=== PATIENT | male | born 1970 | race Caucasian/White ===

== ENCOUNTER 2016-08-18 22:31 | Emergency (ER) | payer OTHER ==
--- NOTE | 2016-08-18 23:38 | Emergency Department Record ---
History of Present Illness - General Chief Complaint: Dizziness Stated Complaint: DIZZY,NAUSEA,HEADACHE Time Seen by Provider: 08/18/16 23:24 Source: Patient Mode of Arrival: Wheelchair Limitations: No limitations - History of Present Illness Initial Comments: pt has been having increasing ataxic spells and near syncope spells. they are usually accompanied by nausea and vomiting. he has gone to the [facility] and has had an echo of his heart. tonight symptoms became severe and he fell repeatedly and had near syncope. MD Complaint: Dizziness, Lightheadedness, Near syncope, Difficulty walking Onset/Timin -: Hour(s) Timing: Awoke with symptoms Description: Difficulty walking, Lightheadedness, Nausea, Off-balance History of Same: Yes Improves With: Rest Worsens With: Movement, Position Associated Symptoms: Ataxia - Temple Coma Scale Eye Response: (4) Open spontaneously Motor Response: (6) Obeys commands Verbal Response: (5) Oriented Yonathan Total: 15 - Related Data Home Medications Medication Instructions Recorded Confirmed Last Taken Albuterol Sulfate 0.083% [Neb] 3 ml NEB .EVERY 4-6 HOURS PRN 07/04/15 08/18/16 07/04/15 14:00 Albuterol Sulfate [Ventolin Hfa] 2 puff INH ASDIR 07/04/15 08/18/16 07/04/15 Budesonide/Formoterol Fumarate 1 puff INH DAILY 07/04/15 08/18/16 07/04/15 [Symbicort 160-4.5 Mcg Inhaler] Tiotropium Willard [Spiriva] 1 cap IH DAILY 07/04/15 08/18/16 07/04/15 Ranitidine HCl [Zantac] 150 mg PO DAILY 08/18/16 08/18/16 Unknown Previous Rx's Medication Instructions Recorded Epinephrine [Epipen] 0.3 mg IM ASDIR PRN #3 syr 07/04/15 Amoxicillin/Potassium Clav 1 tab PO BID #30 tab 08/19/16 [Augmentin 875-125 Tablet] Promethazine HCl [Phenergan] 25 mg PO TID #10 tablet 08/19/16 Allergies Allergy/AdvReac Type Severity Reaction Status Date / Time aspirin Allergy ANAPHYLAXIS Verified 07/04/15 20:57 Iodinated Contrast Media - Allergy SHORTNESS Verified 08/18/16 22:44 Oral and OF BREATH Travel Screening - Travel/Exposure Within Last 30 Days Have you traveled within the last 30 days?: No - Travel Symptoms Symptom Screening: None Review of Systems Reviewed: No additional complaints except as noted below Constitutional: Reports: As per HPI. Denies: Chills, Fever, Malaise, Night sweats, Weakness, Weight change Eyes: Reports: As per HPI. Denies: Eye discharge, Eye pain, Photophobia, Vision change ENT: Reports: As per HPI. Denies: Congestion, Dental pain, Ear pain, Epistaxis , Hearing loss, Throat pain Respiratory: Reports: As per HPI. Denies: Cough, Dyspnea, Hemoptysis, Stridor, Wheezes Cardiovascular: Reports: As per HPI. Denies: Arrhythmia, Chest pain, Dyspnea on exertion, Edema, Murmurs, Orthopnea, Palpitations, Paroxysmal nocturnal dyspnea, Rheumatic Fever, Syncope Endocrine: Reports: As per HPI. Denies: Fatigue, Heat or cold intolerance, Polydipsia, Polyuria Gastrointestinal: Reports: As per HPI. Denies: Abdominal pain, Constipation, Diarrhea, Hematemesis, Hematochezia, Melena, Nausea, Vomiting Genitourinary: Reports: As per HPI. Denies: Dysuria, Frequency, Hematuria, Incontinence, Retention, Testicular pain, Testicular mass, Urgency Musculoskeletal: Reports: As per HPI. Denies: Arthralgia, Back pain, Gout, Joint swelling, Myalgia, Neck pain Skin: Reports: As per HPI. Denies: Bruising, Change in color, Change in hair/ nails, Lesions, Pruritus, Rash Neurological: Reports: As per HPI. Denies: Abnormal gait, Confusion, Headache, Numbness, Paresthesias, Seizure, Tingling, Tremors, Vertigo, Weakness Psychiatric: Reports: As per HPI. Denies: Anxiety, Auditory hallucinations, Depression, Homicidal thoughts, Suicidal thoughts, Visual hallucinations Hematological/Lymphatic: Reports: As per HPI. Denies: Anemia, Blood Clots, Easy bleeding, Easy bruising, Swollen glands Past Medical History - SOCIAL HISTORY Smoking Status: Never smoker - RESPIRATORY Hx Respiratory Disorders: Yes Hx Asthma: Yes Hx Sleep Apnea: Yes Hx of CPAP: Yes Comment:: environmental allergies - CARDIOVASCULAR Hx Cardio Disorders: No - NEURO Hx Neuro Disorders: Yes Hx Headaches: Yes Comment:: tinnitis - GI Hx GI Disorders: Yes Hx Reflux: Yes Hx Irritable Bowel: Yes - Hx Genitourinary Disorders: No - ENDOCRINE Hx Endocrine Disorders: No - MUSCULOSKELETAL Hx Musculoskeletal Disorders: Yes Hx Arthritis: Yes Comment:: bone spurs in feet - PSYCH Hx Psych Problems: Yes Hx Depression: Yes Comment:: PTSD - HEMATOLOGY/ONCOLOGY Hx Hematology/Oncology Disorders: No Family Medical History Any Significant Family History?: Yes Hx Cancer: Father, Grandparents Hx Seizures: Mother Physical Exam - General General Appearance: Alert, Oriented x3, Cooperative, Mild distress - Head Head exam: Normal inspection - Eye Eye exam: Normal appearance, PERRL, EOMI Pupils: Normal accommodation - ENT ENT exam: Normal exam, Mucous membranes moist, Normal external ear exam, Normal orophraynx Ear exam: Normal external inspection. negative: External canal tenderness Nasal Exam: Normal inspection. negative: Discharge, Sinus tenderness Mouth exam: Normal external inspection, Tongue normal Teeth exam: Normal inspection. negative: Dental caries Throat exam: Normal inspection. negative: Tonsillar erythema, Tonsillar exudate - Neck Neck exam: Normal inspection, Full ROM. negative: Tenderness - Respiratory Respiratory exam: Normal lung sounds bilaterally. negative: Respiratory distress - Cardiovascular Cardiovascular Exam: Normal rhythm, Normal heart sounds, Bradycardia - GI/Abdominal GI/Abdominal exam: Soft, Normal bowel sounds. negative: Tenderness - Rectal Rectal exam: Deferred - exam: Deferred - Extremities Extremities exam: Normal inspection, Full ROM, Normal capillary refill. negative: Tenderness - Back Back exam: Reports: Normal inspection, Full ROM. Denies: Muscle spasm, Rash noted, Tenderness - Neurological Neurological exam: Alert, CN II-XII intact, Oriented X3, Other (missed nose w finger) - Psychiatric Psychiatric exam: Normal affect, Normal mood - Skin Skin exam: Dry, Intact, Normal color, Warm Course Vital Signs 08/18/16 22:45 Temperature 97.5 F L Pulse Rate 56 L Respiratory 16 Rate Blood Pressure 129/90 Pulse Ox 95 - Reevaluation(s) Reevaluation #1: 08/19/16 02:28 pt feels much better, no n/v,no further dizziness. able to ambulate Medical Decision Making - Lab Data Result diagrams: 08/18/16 23:05 08/18/16 23:05 Disposition Disposition: Discharge Clinical Impression: Sinusitis Qualifiers: Sinusitis location: pansinusitis Chronicity: acute Recurrence: non-recurrent Qualified Code(s): J01.40 - Acute pansinusitis, unspecified Disposition: Home, Self-Care Condition: (1) Good Instructions: Acute Bacterial Rhinosinusitis (ED) Additional Instructions: follow up with [facility] and [facility]. return sooner if worse. have MRI of brain Prescriptions: Amoxicillin/Potassium Clav [Augmentin 875-125 Tablet] 1 tab PO BID #30 tab Promethazine HCl [Phenergan] 25 mg PO TID #10 tablet Forms: Patient Portal Access
[2016-08-18 23:56] LABS: BASO % 0.3 % (0-6); EOS % 1.5 % (0-6); GRAN % 56.3 % (47-80); HEMATOCRIT 43.6 % (42.0-52.0); HEMOGLOBIN 15.6 gm/dl (14.0-18.0); LYMPH % 34.1 % (16-45); MEAN CELL VOLUME 87.9 fl (81-97); MEAN CORPUSCULAR HEMOGLOBIN 31.5 pg (27-33); MEAN CORPUSCULAR HGB CONC 35.8 g/dl (32-36); MEAN PLATELET VOLUME 12.4 fl (7.4-10.4); MONO % 7.8 % (0-9); PLATELET COUNT 187 K/uL (130-400); RED BLOOD COUNT 4.96 M/uL (4.40-5.70); RED CELL DISTRIBUTION WIDTH 12.9 % (11.5-14.5); WHITE BLOOD COUNT W/O DIFF 7.8 K/uL (4.2-12.2)
[2016-08-19 00:05] LABS: ANION GAP 12.8 (7-16); BLOOD UREA NITROGEN 14 mg/dL (9-20); CARBON DIOXIDE 25.2 mmol/L (22-30); CREATININE 0.9 mg/dL (0.66-1.25); EST GLOMERULAR FILTRATION RATE > 60 ml/min; GLUCOSE,RANDOM 115 mg/dL (70-110)
[2016-08-19] MEDS ORDERED: 0.9 % SODIUM CHLORIDE 1,000 ML BAG IV ONE (02:02)
[2016-08-19 02:16] LABS: URINE APPEARANCE CLEAR; URINE BILIRUBIN NEGATIVE (NEGATIVE); URINE BLOOD NEGATIVE (NEGATIVE); URINE COLOR YELLOW; URINE GLUCOSE (UA) NEGATIVE (NEGATIVE); URINE KETONE NEGATIVE (NEGATIVE); URINE LEUKOCYTE ESTERASE NEGATIVE (NEGATIVE); URINE NITRITE NEGATIVE (NEGATIVE); URINE PROTEIN NEGATIVE (NEGATIVE); URINE UROBILINOGEN 0.2 E.U./dL (0.20 - 1.00)
[2016-08-19] MEDS ORDERED: AMOXICILLIN/POTASSIUM CLAV 875MG/125MG TABLET PO ONE (02:29)
[2016-08-19] MEDS ORDERED: PROMETHAZINE HCL 25 MG TABLET PO ONE (02:29)
== END 2016-08-19 02:44 | disposition home or self-care (01) ==
LOC: ER 22:31
DX: J01.40 Acute pansinusitis, unspecified (principal); R51 Headache; R11.0 Nausea; R42 Dizziness and giddiness; R27.0 Ataxia, unspecified; R19.7 Diarrhea, unspecified
CPT/HCPCS: 70450; 80048; 81003; 85025; 96360; 99284; J7030; Q0170

== ENCOUNTER 2017-12-17 03:51 | Emergency (ER) | payer OTHER ==
[2017-12-17] MEDS ORDERED: DIPHENHYDRAMINE HCL 25 MG CAPSULE PO ONE (04:04)
[2017-12-17] MEDS ORDERED: PREDNISONE 20 MG TAB PO ONE (04:04)
--- NOTE | 2017-12-17 04:10 | Emergency Department Record ---
History of Present Illness - General Chief complaint: Allergic Reaction Stated complaint: ALLERGIC REACTION Time Seen by Provider: 12/17/17 03:52 Source: Patient Mode of Arrival: Ambulatory Limitations: No limitations - History of Present Illness Initial Comments: 47 yo male presents to ED for evaluation following self-administration of his home epi pen after awakening this morning with shortness or breath and throat swelling. Patient reported shortness of breath and wheezing which has improved upon arrival. Patient reports that his allergic symptoms are greatly improved following epi administration. Patient denies any new foods, detergents, or medications at home. Patient reports similar symptoms previously. MD Complaint: Allergic reaction Onset/Timin -: Minutes(s) Exposure: Unknown Symptoms: Rash, Difficulty breathing, Other Severity: Severe Treatment Prior to Arrival: Bronchodilator, Epinephrine Previous Allergy History: Anaphylaxis - Related Data Home Medications Medication Instructions Recorded Confirmed Last Taken Adalimumab [Humira] 40 mg SQ ASDIR 12/17/17 12/17/17 Unknown Aspirin [Aspirin EC] 325 mg PO DAILY 12/17/17 12/17/17 Unknown Carboxymethylcellulose [Methocel E 1 gm ASDIR 12/17/17 12/17/17 Unknown 4 M] Cetirizine HCl [Zyrtec] 10 mg PO DAILY 12/17/17 12/17/17 Unknown Divalproex Sodium [Depakote] 500 mg PO DAILY 12/17/17 12/17/17 Unknown Folic Acid 1 mg PO DAILY 12/17/17 12/17/17 Unknown Hydroxychloroquine Sulfate 200 mg PO DAILY 12/17/17 12/17/17 Unknown [Plaquenil] Hydroxyzine HCl [Atarax] 25 mg PO Q8H PRN 12/17/17 12/17/17 Unknown Lisinopril [Prinivil] 5 mg PO DAILY 12/17/17 12/17/17 Unknown Methotrexate 1 gm ASDIR 12/17/17 12/17/17 Unknown Metoprolol Succinate [Toprol Xl] 100 mg PO DAILY 12/17/17 12/17/17 Unknown Mirtazapine [Remeron] 30 mg PO QHS 12/17/17 12/17/17 Unknown Trazodone HCl 100 mg PO QHS 12/17/17 12/17/17 Unknown Zileuton [Zyflo] 600 mg PO DAILY 12/17/17 12/17/17 Unknown Previous Rx's Medication Instructions Recorded Epinephrine [Epipen] 0.3 mg IM ASDIR PRN #3 syr 07/04/15 Famotidine [Pepcid] 40 mg PO DAILY #15 tablet 12/17/17 Prednisone [Prednisone 20Mg] 20 mg PO TID #12 tab 12/17/17 Allergies Allergy/AdvReac Type Severity Reaction Status Date / Time aspirin Allergy ANAPHYLAXIS Verified 07/04/15 20:57 Iodinated Contrast- Oral and Allergy SHORTNESS Verified 08/18/16 22:44 IV Dye OF BREATH [Iodinated Contrast Media - Oral and] Travel Screening - Travel/Exposure Within Last 30 Days Have you traveled within the last 30 days?: No - Travel Symptoms Symptom Screening: None Review of Systems Constitutional: Denies: Chills, Fever, Malaise, Night sweats Eyes: Denies: Eye discharge, Eye pain ENT: Denies: Congestion, Ear pain, Epistaxis Respiratory: Reports: Dyspnea. Denies: Cough Cardiovascular: Denies: Chest pain, Dyspnea on exertion Endocrine: Denies: Fatigue, Heat or cold intolerance Gastrointestinal: Denies: Abdominal pain, Nausea, Vomiting Genitourinary: Denies: Incontinence, Retention Musculoskeletal: Denies: Arthralgia, Back pain, Gout, Joint swelling Skin: Denies: Bruising, Change in color Neurological: Denies: Abnormal gait, Confusion, Headache, Seizure Psychiatric: Denies: Anxiety Hematological/Lymphatic: Denies: Anemia, Blood Clots Past Medical History - SOCIAL HISTORY Smoking Status: Never smoker Alcohol Use: None Drug Use: None - RESPIRATORY Hx Respiratory Disorders: Yes Hx Asthma: Yes Hx Sleep Apnea: Yes Hx of CPAP: Yes Comment:: environmental allergies - CARDIOVASCULAR Hx Cardio Disorders: No - NEURO Hx Neuro Disorders: Yes Hx Headaches: Yes Comment:: tinnitis - GI Hx GI Disorders: Yes Hx Reflux: Yes Hx Irritable Bowel: Yes - Hx Genitourinary Disorders: No - ENDOCRINE Hx Endocrine Disorders: No - MUSCULOSKELETAL Hx Musculoskeletal Disorders: Yes Hx Arthritis: Yes Comment:: bone spurs in feet - PSYCH Hx Psych Problems: Yes Hx Depression: Yes Comment:: PTSD - HEMATOLOGY/ONCOLOGY Hx Hematology/Oncology Disorders: No Family Medical History Any Significant Family History?: Yes Hx Cancer: Father, Grandparents Hx Seizures: Mother Physical Exam - General General Appearance: Alert, Oriented x3, Cooperative, Mild distress Limitations: No limitations - Head Head exam: Atraumatic, Normocephalic, Normal inspection Head exam detail: negative: Abrasion, Contusion, Evans's sign, General tenderness, Hematoma, Laceration - Eye Eye exam: Normal appearance. negative: Conjunctival injection, Periorbital swelling, Periorbital tenderness, Scleral icterus - ENT Ear exam: negative: Auricular hematoma, Auricular trauma Nasal Exam: negative: Active bleeding, Discharge, Dried blood, Foreign body Mouth exam: negative: Drooling, Laceration, Muffled voice, Tongue elevation - Neck Neck exam: Normal inspection. negative: Meningismus, Tenderness - Respiratory Respiratory exam: Normal lung sounds bilaterally. negative: Rales, Respiratory distress, Rhonchi, Stridor - Cardiovascular Cardiovascular Exam: Regular rate, Normal rhythm, Normal heart sounds - GI/Abdominal GI/Abdominal exam: Soft. negative: Rebound, Rigid, Tenderness - Rectal Rectal exam: Deferred - exam: Deferred - Extremities Extremities exam: Normal inspection. negative: Calf tenderness, Pedal edema, Tenderness - Back Back exam: Denies: CVA tenderness (R), CVA tenderness (L) - Neurological Neurological exam: Alert, Normal gait, Oriented X3 - Psychiatric Psychiatric exam: Normal affect, Normal mood - Skin Skin exam: Normal color. negative: Abrasion Type of lesion: negative: abrasion Course Vital Signs 12/17/17 03:55 Temperature 98 F Pulse Rate 86 Respiratory 22 Rate Blood Pressure 146/110 Pulse Ox 99 - Reevaluation(s) Reevaluation #1: 12/17/17 05:19 Patient reassessed, reports that his symptoms continue to improve. Patient appears stable for discharge on Prednisone and Pepcid as directed. Disposition Disposition: Discharge Clinical Impression: Allergic reaction Qualifiers: Encounter type: initial encounter Qualified Code(s): T78.40XA - Allergy, unspecified, initial encounter Disposition: Home, Self-Care Condition: (2) Stable Instructions: General Allergic Reaction (ED) Additional Instructions: Return to ED if your symptoms worsen or if you have any concerns. Prednisone, Pepcid as directed. Follow-up with your family doctor in 3-5 days as directed. Prescriptions: Famotidine [Pepcid] 40 mg PO DAILY #15 tablet Prednisone [Prednisone 20Mg] 20 mg PO TID #12 tab Forms: Patient Portal Access Time of Disposition: 04:13 Quality - Quality Measures Quality Measures: N/A - Blood Pressure Screening Does Patient Have Any of the Following: No Blood Pressure Classification: Hypertensive Reading Systolic Measurement: 146 Diastolic Measurement: 110 Screening for High Blood Pressure: < First Hypertensive BP, F/U Documented > [ [id number]] First Hypertensive Follow-up Interventions: Referral to alternative/primary care provider.
[2017-12-17] MEDS ORDERED: FAMOTIDINE 20MG TABLET PO SCH (07:00)
== END 2017-12-17 05:24 | disposition home or self-care (01) ==
LOC: ER 03:51
DX: T78.40XA Allergy, unspecified, initial encounter (principal); R06.02 Shortness of breath; R21 Rash and other nonspecific skin eruption; R06.2 Wheezing
CPT/HCPCS: 99283; J7512

== ENCOUNTER 2017-12-29 04:13 | Emergency (ER) | payer OTHER ==
[2017-12-29] MEDS ORDERED: IPRATROPIUM/ALBUTEROL (0.5MG/3MG) NEB INH ONE (04:15)
[2017-12-29] MEDS ORDERED: METHYLPREDNISOLONE PF 125MG/VIAL IVP ONE (04:15)
[2017-12-29] MEDS ORDERED: DIPHENHYDRAMINE HCL 50 MG/ML VIAL IVP ONE (04:22)
[2017-12-29 04:23] LABS: BASO % 0.3 % (0-6); EOS % 7.7 % (0-6); GRAN % 39.7 % (47-80); HEMATOCRIT 46.9 % (42.0-52.0); HEMOGLOBIN 16.9 gm/dl (14.0-18.0); LYMPH % 44.4 % (16-45); MEAN CELL VOLUME 86.9 fl (81-97); MEAN CORPUSCULAR HEMOGLOBIN 31.3 pg (27-33); MONO % 7.9 % (0-9); PLATELET COUNT 192 K/uL (130-400); RED CELL DISTRIBUTION WIDTH 12.2 % (11.5-14.5); WHITE BLOOD COUNT W/O DIFF 11.5 K/uL (4.2-12.2)
--- NOTE | 2017-12-29 04:23 | Emergency Department Record ---
History of Present Illness - General Chief Complaint: Shortness of breath Stated Complaint: RAYMON Time Seen by Provider: 12/29/17 04:15 Source: Patient, Family Mode of Arrival: Ambulatory Limitations: No limitations - History of Present Illness Initial Comments: 47 yo male presents with shortness of breath and wheezing. He has a history of allergies and allergic reactions. He had a similar episode about 1.5 weeks ago and was seen in the ED. He gave himself an epinephrine shot and started nebulized treatments. He is not currently on antibiotics or steroids. No lip, tongue, facial swelling. He is coughing. It is non productive. He went to bed around midnight. He had a normal evening prior to that. He woke at 3:50AM with coughing. He that is throat was feeling tight so he took the epipen. MD Complaint: "Asthma attack", Shortness of breath -: Hour(s), Awoke with symptoms Severity: Moderate, Severe Quality: Other Consistency: Constant Improves With: Bronchodilators, Other (Epipen) Worsens With: Coughing Known History Of: Asthma Context: Other (Unknown exposure) Associated Symptoms: Denies other symptoms Treatments Prior to Arrival: Bronchodilator, Other (Epipen) - Related Data Previous Rx's Medication Instructions Recorded Epinephrine [Epipen] 0.3 mg IM ASDIR PRN #3 syr 07/04/15 Famotidine [Pepcid] 40 mg PO DAILY #15 tablet 12/17/17 Prednisone [Prednisone 20Mg] 20 mg PO TID #12 tab 12/17/17 Methylprednisolone [Medrol Dose 4 mg PO DAILY #1 tab.ds.pk 12/29/17 Pack] Allergies Allergy/AdvReac Type Severity Reaction Status Date / Time aspirin Allergy ANAPHYLAXIS Verified 07/04/15 20:57 Iodinated Contrast- Oral and Allergy SHORTNESS Verified 08/18/16 22:44 IV Dye OF BREATH [Iodinated Contrast Media - Oral and] Review of Systems Constitutional: Denies: Chills, Fever, Malaise, Weakness Eyes: Denies: Eye discharge ENT: Denies: Congestion, Dental pain, Throat pain Respiratory: Reports: Cough, Dyspnea, Wheezes. Denies: Hemoptysis Cardiovascular: Denies: Chest pain, Palpitations, Syncope Endocrine: Denies: Fatigue, Polydipsia, Polyuria Gastrointestinal: Denies: Abdominal pain, Diarrhea, Nausea, Vomiting Genitourinary: Denies: Dysuria, Frequency, Hematuria Musculoskeletal: Denies: Arthralgia, Back pain, Myalgia Skin: Denies: Bruising, Change in color, Rash Neurological: Denies: Headache, Numbness, Weakness Psychiatric: Denies: Anxiety Hematological/Lymphatic: Denies: Blood Clots, Easy bleeding, Easy bruising, Swollen glands Past Medical History - SOCIAL HISTORY Smoking Status: Never smoker Drug Use: None - RESPIRATORY Hx Respiratory Disorders: Yes Hx Asthma: Yes Hx Sleep Apnea: Yes Hx of CPAP: Yes Comment:: environmental allergies - CARDIOVASCULAR Hx Cardio Disorders: No - NEURO Hx Neuro Disorders: Yes Hx Headaches: Yes Comment:: tinnitis - GI Hx GI Disorders: Yes Hx Reflux: Yes Hx Irritable Bowel: Yes - Hx Genitourinary Disorders: No - ENDOCRINE Hx Endocrine Disorders: No - MUSCULOSKELETAL Hx Musculoskeletal Disorders: Yes Hx Arthritis: Yes Comment:: bone spurs in feet - PSYCH Hx Psych Problems: Yes Hx Depression: Yes Comment:: PTSD - HEMATOLOGY/ONCOLOGY Hx Hematology/Oncology Disorders: No Family Medical History Hx Cancer: Father, Grandparents Hx Seizures: Mother Physical Exam - General General Appearance: Alert, Oriented x3, Cooperative, No acute distress, Anxious , Other (Alert, prolonged expiration, wheezy) Limitations: No limitations - Head Head exam: Normal inspection - Eye Eye exam: Normal appearance. negative: Conjunctival injection - ENT ENT exam: Normal exam Ear exam: Normal external inspection Nasal Exam: Normal inspection Mouth exam: Normal external inspection - Neck Neck exam: Normal inspection, Full ROM. negative: Tenderness - Respiratory Respiratory exam: Accessory muscle use, Decreased breath sounds, Prolonged expiratory, Respiratory distress (mild labored), Wheezes. negative: Normal lung sounds bilaterally, Chest wall tenderness, Rhonchi - Cardiovascular Cardiovascular Exam: Regular rate, Normal rhythm, Normal heart sounds - GI/Abdominal GI/Abdominal exam: Soft. negative: Tenderness - Rectal Rectal exam: Deferred - exam: Deferred - Extremities Extremities exam: Normal inspection, Full ROM, Normal capillary refill. negative: Pedal edema, Tenderness - Back Back exam: Reports: Normal inspection, Full ROM. Denies: Muscle spasm, Rash noted, Tenderness - Neurological Neurological exam: Alert, Normal gait, Oriented X3 - Psychiatric Psychiatric exam: Normal affect, Normal mood. negative: Agitated, Anxious - Skin Skin exam: Dry, Intact, Normal color, Warm Course Vital Signs 12/29/17 04:16 Temperature 97.9 F Pulse Rate [ 82 Pulse Ox Probe] Respiratory 24 Rate Blood Pressure 164/115 [Left Arm] Pulse Ox 99 - Reevaluation(s) Reevaluation #1: EMR was reviewed from the 12/17/17 ED visit 12/29/17 04:22 99% on room air. Lungs are diminished and wheezing. Oral pharynx is clear without swelling. Normal tongue. 12/29/17 04:23 The patient is doing better with the Duoneb. His work of breathing has improved. He does not appear tachypneic. He appears relaxed. Oxygen saturations are in the upper 90's. 12/29/17 04:37 12/29/17 04:49 No acute changes on the CBC or BMP. 12/29/17 05:17 HR 74 with oxygen saturation of 97%. 12/29/17 05:44 The patient states his breathing is back to baseline. No wheezing or shortness of breath. I recommended 4 hours observation since he took the EPiPen. He states he is ready to go but will wait a little longer. He had been on Prednisone for about 5 years straight at one point. He will call his PCP, Unit Secy and Subscription Clerk to discuss the future plan. He will be placed on a Medrol Dose pack upon DC. He does not need refills of his EpiPens 12/29/17 05:51 12/29/17 07:10 The patient remains asymptomatic asking to leave at this time. We discussed the results of the tests and questions were answered at the time of discharge. The patient is doing well and is comfortable with DC. DC vitals were reviewed. We discussed at length reasons to immediately return to the ED as well as close follow up. The patient will call the PCP,facer operator, and inspector government property for close follow up of this ED visit to review this visit and the tests performed Medical Decision Making - Lab Data Result diagrams: 12/29/17 04:15 12/29/17 04:15 Disposition Disposition: Discharge Clinical Impression: Acute asthma exacerbation Qualifiers: Asthma persistence: intermittent Allergic reaction Qualifiers: Encounter type: initial encounter Qualified Code(s): T78.40XA - Allergy, unspecified, initial encounter Disposition: Home, Self-Care Condition: (1) Good Instructions: Asthma (ED), Anaphylaxis (ED) Additional Instructions: Take the prescriptions provided today as directed. Call your family doctor Return to ED if your symptoms worsen or if you have any new concerns. Call to schedule the next available appointment for a recheck. Review the final Emergency Record and test results with your doctor on follow up Call your facer operator and inspector government property as well today for close follow up Prescriptions: Methylprednisolone [Medrol Dose Pack] 4 mg PO DAILY #1 tab.ds.pk Forms: Patient Portal Access Time of Disposition: 07:10 Quality - Quality Measures Quality Measures: N/A - Blood Pressure Screening Does Patient Have Any of the Following: Active Dx of HTN Blood Pressure Classification: Pre-Hypertensive BP Reading Systolic Measurement: 143 Diastolic Measurement: 87 Screening for High Blood Pressure: Patient Exclusion, Hx of HTN [G9744]
[2017-12-29 04:36] LABS: PARTIAL THROMBOPLASTIN TIME 28.7 SECONDS (24.5-39.1); PROTHROMBIN TIME (PATIENT) 10.9 SECONDS (9.5-12.1)
[2017-12-29 04:47] LABS: BLOOD UREA NITROGEN 13 mg/dL (6-20); EST GLOMERULAR FILTRATION RATE > 60 mL/min
[2017-12-29 04:48] LABS: TOTAL PROTEIN 7.2 g/dL (6.6-8.7)
[2017-12-29 04:50] LABS: GLUCOSE,RANDOM 122 mg/dL (74-109)
[2017-12-29 04:52] LABS: ALT/SGPT 61 U/L (<41); AST/SGOT 36 U/L (10.0-50.0)
[2017-12-29 04:53] LABS: ALB/GLOB RATIO 1.3 (1.1-1.8); ALBUMIN 4.1 g/dL (4.0-5.0); ALKALINE PHOSPHATASE 144 U/L (40-129)
== END 2017-12-29 07:58 | disposition home or self-care (01) ==
LOC: ER 04:13
DX: J45.21 Mild intermittent asthma with (acute) exacerbation (principal); R06.02 Shortness of breath; T78.40XA Allergy, unspecified, initial encounter; I10 Essential (primary) hypertension
CPT/HCPCS: 80053; 85025; 85610; 85730; 94640; 96374; 96375; 99284; J1200; J2930

== ENCOUNTER 2018-12-05 19:04 | Emergency (ER) | payer MEDICARE, OTHER ==
[2018-12-05] MEDS ORDERED: ALBUTEROL (0.5% CONCENTRATED) 2.5 MG/0.5 ML VIAL.NEB INH ONE ×2 (19:14→19:33)
[2018-12-05] MEDS ORDERED: IPRATROPIUM/ALBUTEROL (0.5MG/3MG) NEB INH ONE (19:14)
[2018-12-05] MEDS ORDERED: METHYLPREDNISOLONE PF 125MG/VIAL IVP ONE (19:15)
--- NOTE | 2018-12-05 19:30 | Emergency Department Record ---
History of Present Illness - General Chief Complaint: Shortness of breath Stated Complaint: RAYMON Time Seen by Provider: 12/05/18 19:15 Source: Patient Mode of Arrival: Ambulatory Limitations: No limitations - History of Present Illness Initial Comments: 48 yo male presents to ED for evaluation of difficulty in breathing an wheezing symptoms that began approximately 4 hours ago. Patient reports long-standing history of asthma with frequent exacerbations. Patient reports using his albuterol inhaler twice prior to arrival, reports that he has been taking Prednisone 40 mg daily as well. Patient denies fevers, chills, or productive cough symptoms. MD Complaint: "Asthma attack" Onset/Timin -: Hour(s) Consistency: Constant Improves With: Nothing Worsens With: Nothing Known History Of: Asthma Associated Symptoms: Denies other symptoms Treatments Prior to Arrival: Bronchodilator - Related Data Home Oxygen Therapy: No Home Medications Medication Instructions Recorded Confirmed Last Taken Prednisone [Prednisone 20Mg] 40 mg PO DAILY 12/05/18 12/05/18 Unknown Previous Rx's Medication Instructions Recorded Epinephrine [Epipen] 0.3 mg IM ASDIR PRN #3 syr 07/04/15 Famotidine [Pepcid] 40 mg PO DAILY #15 tablet 12/17/17 Prednisone [Prednisone 20Mg] 20 mg PO DAILY #5 tab 12/05/18 Allergies Allergy/AdvReac Type Severity Reaction Status Date / Time aspirin Allergy ANAPHYLAXIS Verified 07/04/15 20:57 Iodinated Contrast- Oral and Allergy SHORTNESS Verified 08/18/16 22:44 IV Dye OF BREATH [Iodinated Contrast Media - Oral and] Travel Screening - Travel/Exposure Within Last 30 Days Have you traveled within the last 30 days?: No Review of Systems Constitutional: Denies: Chills, Fever, Malaise, Night sweats Eyes: Denies: Eye discharge, Eye pain ENT: Denies: Congestion, Ear pain, Epistaxis Respiratory: Reports: Dyspnea, Wheezes. Denies: Cough Cardiovascular: Reports: Dyspnea on exertion. Denies: Chest pain Endocrine: Denies: Fatigue Gastrointestinal: Denies: Abdominal pain, Nausea, Vomiting Genitourinary: Denies: Incontinence, Retention Musculoskeletal: Denies: Arthralgia, Back pain, Gout, Joint swelling Skin: Denies: Bruising, Change in color Neurological: Denies: Abnormal gait, Confusion, Headache, Seizure Psychiatric: Denies: Anxiety Hematological/Lymphatic: Denies: Anemia, Blood Clots Past Medical History - SOCIAL HISTORY Smoking Status: Never smoker Alcohol Use: None Drug Use: None - RESPIRATORY Hx Respiratory Disorders: Yes Hx Asthma: Yes Hx Sleep Apnea: Yes Hx of CPAP: Yes Comment:: environmental allergies - CARDIOVASCULAR Hx Cardio Disorders: No - NEURO Hx Neuro Disorders: Yes Hx Headaches: Yes Comment:: tinnitis - GI Hx GI Disorders: Yes Hx Reflux: Yes Hx Irritable Bowel: Yes - Hx Genitourinary Disorders: No - ENDOCRINE Hx Endocrine Disorders: No - MUSCULOSKELETAL Hx Musculoskeletal Disorders: Yes Hx Arthritis: Yes Comment:: bone spurs in feet - PSYCH Hx Psych Problems: Yes Hx Depression: Yes Comment:: PTSD - HEMATOLOGY/ONCOLOGY Hx Hematology/Oncology Disorders: No Family Medical History Any Significant Family History?: Yes Hx Cancer: Father, Grandparents Hx Seizures: Mother Physical Exam - General General Appearance: Alert, Oriented x3, Cooperative, Moderate distress Limitations: No limitations - Head Head exam: Atraumatic, Normocephalic, Normal inspection Head exam detail: negative: Abrasion, Contusion, Evans's sign, General tenderness, Hematoma, Laceration - Eye Eye exam: Normal appearance. negative: Conjunctival injection, Periorbital sw elling, Periorbital tenderness, Scleral icterus - ENT Ear exam: negative: Auricular hematoma, Auricular trauma Nasal Exam: negative: Active bleeding, Discharge, Dried blood, Foreign body Mouth exam: negative: Drooling, Laceration, Muffled voice, Tongue elevation - Neck Neck exam: Normal inspection. negative: Meningismus, Tenderness - Respiratory Respiratory exam: Decreased breath sounds, Prolonged expiratory, Wheezes. negative: Rales, Respiratory distress, Rhonchi, Stridor - Cardiovascular Cardiovascular Exam: Regular rate, Normal rhythm, Normal heart sounds - GI/Abdominal GI/Abdominal exam: Soft. negative: Rebound, Rigid, Tenderness - Rectal Rectal exam: Deferred - exam: Deferred - Extremities Extremities exam: Normal inspection. negative: Pedal edema, Tenderness - Back Back exam: Denies: CVA tenderness (R), CVA tenderness (L) - Neurological Neurological exam: Alert, Normal gait, Oriented X3 - Psychiatric Psychiatric exam: Normal affect, Normal mood - Skin Skin exam: Normal color. negative: Abrasion Type of lesion: negative: abrasion Course Vital Signs 12/05/18 12/05/18 19:12 19:19 Pulse Rate 99 H Pulse Rate [ 98 H Left] Respiratory 20 14 Rate Blood Pressure 120/89 [Left] Pulse Ox 94 L 96 - Reevaluation(s) Reevaluation #1: 12/05/18 19:29 Patient is receiving duoneb on examination, BS improved per respiratory therapy upon my examination. Solumedrol 125 mg ordered IV, will reassess in 15-20 minutes. Reevaluation #2: 12/05/18 20:18 Patient was reassessed, reports that he is feeling much better (now at his baseline), BS significantly improved. Patient appears stable for discharge at this time. Disposition Disposition: Discharge Clinical Impression: Exacerbation of asthma Qualifiers: Asthma severity: moderate Asthma persistence: unspecified Qualified Code(s): J45.901 - Unspecified asthma with (acute) exacerbation Disposition: Home, Self-Care Condition: (2) Stable Instructions: Moderate and Severe Persistent Asthma (ED) Additional Instructions: Return to ED if your symptoms worsen or if you have any concerns. Prednisone as directed. Follow-up with your family doctor in 3-5 days as directed. Prescriptions: Prednisone [Prednisone 20Mg] 20 mg PO DAILY #5 tab Forms: Patient Portal Access Time of Disposition: 20:20 Quality - Quality Measures Quality Measures: N/A - Blood Pressure Screening Does Patient Have Any of the Following: No Blood Pressure Classification: Pre-Hypertensive BP Reading Systolic Measurement: 120 Diastolic Measurement: 89 Screening for High Blood Pressure: < Pre-Hypertensive BP, F/U Documented > [G8950] Pre-Hypertensive Follow-up Interventions: Referral to alternative/primary care provider.
[2018-12-05] MEDS ORDERED: ALBUTEROL SULFATE (0.083%) 2.5 MG/3 ML NEB INH ONE (19:33)
== END 2018-12-05 20:32 | disposition home or self-care (01) ==
LOC: ER 19:04
DX: J45.901 Unspecified asthma with (acute) exacerbation (principal)
CPT/HCPCS: 94640; 96374; 99284; J2930; J7613

== ENCOUNTER 2019-03-25 05:40 | Observation (INO) | payer MEDICARE, OTHER ==
[2019-03-25] MEDS ORDERED: METHYLPREDNISOLONE PF 125MG/VIAL IVP ONE (05:47)
[2019-03-25] MEDS ORDERED: IPRATROPIUM/ALBUTEROL (0.5MG/3MG) NEB INH ONE (05:47)
[2019-03-25] MEDS ORDERED: ALBUTEROL (0.5% CONCENTRATED) 2.5 MG/0.5 ML VIAL.NEB INH ONE (05:58)
[2019-03-25] MEDS ORDERED: MAGNESIUM SULFATE 16 MEQ in 0.9 % SODIUM CHLORIDE 100ML 100 ML IV ONE (06:21)
--- NOTE | 2019-03-25 06:27 | Emergency Department Record ---
History of Present Illness - General Source: Patient, Family Mode of Arrival: Ambulatory Limitations: No limitations - History of Present Illness Initial Comments: pt started having mariam 5hrs ago. he gave himself 6 breathing treatments and an epi pen. he has a hx of asthma and severe seasonal allergies. he is seeing a quality control clerk at the [facility] MD Complaint: "Asthma attack", Cough, Shortness of breath Onset/Timin -: Hour(s) Consistency: Constant Improves With: Bronchodilators, Medication, Oxygen, Upright position Known History Of: Asthma Context: Allergen exposure Associated Symptoms: Cough Treatments Prior to Arrival: Bronchodilator Treatment Prior to Arrival Comment:: States 6 breathing treatments PEDIATRIC UROLOGIST - Related Data Home Oxygen Therapy: No <Martha Bazzi - Last Filed: 03/25/19 06:51> <YUMIKO NEWELL - Last Filed: 03/25/19 10:16> - General Chief Complaint: Shortness of breath Stated Complaint: MARIAM Time Seen by Provider: 03/25/19 05:47 - Related Data Previous Rx's Medication Instructions Recorded Epinephrine [Epipen] 0.3 mg IM ASDIR PRN #3 syr 07/04/15 Prednisone [Prednisone 20Mg] 20 mg PO DAILY #5 tab 12/05/18 Allergies Allergy/AdvReac Type Severity Reaction Status Date / Time aspirin Allergy ANAPHYLAXIS Verified 07/04/15 20:57 Iodinated Contrast Media Allergy SHORTNESS Verified 08/18/16 22:44 [Iodinated Contrast Media - OF BREATH Oral and] Travel Screening - Travel/Exposure Within Last 30 Days Have you traveled within the last 30 days?: No - Travel/Exposure Within Last Year Have you traveled outside the [place] in the last year?: No - Additonal Travel Details Have you been exposed to anyone with a communicable illness?: No <Martha Bazzi - Last Filed: 03/25/19 06:51> Review of Systems Reviewed: No additional complaints except as noted below Constitutional: Reports: As per HPI. Denies: Chills, Fever, Malaise, Night sweats, Weakness, Weight change Eyes: Reports: As per HPI. Denies: Eye discharge, Eye pain, Photophobia, Vision change ENT: Reports: As per HPI. Denies: Congestion, Dental pain, Ear pain, Epistaxis, Hearing loss, Throat pain Respiratory: Reports: As per HPI, Cough, Dyspnea, Wheezes. Denies: Hemoptysis, Stridor Cardiovascular: Reports: As per HPI. Denies: Arrhythmia, Chest pain, Dyspnea on exertion, Edema, Murmurs, Orthopnea, Palpitations, Paroxysmal nocturnal dyspnea, Rheumatic Fever, Syncope Endocrine: Reports: As per HPI. Denies: Fatigue, Heat or cold intolerance, Polydipsia, Polyuria Gastrointestinal: Reports: As per HPI. Denies: Abdominal pain, Constipation, Diarrhea, Hematemesis, Hematochezia, Melena, Nausea, Vomiting Genitourinary: Reports: As per HPI. Denies: Dysuria, Frequency, Hematuria, Incontinence, Retention, Testicular pain, Testicular mass, Urgency Musculoskeletal: Reports: As per HPI. Denies: Arthralgia, Back pain, Gout, Joint swelling, Myalgia, Neck pain Skin: Reports: As per HPI. Denies: Bruising, Change in color, Change in hair/nails, Lesions, Pruritus, Rash Neurological: Reports: As per HPI. Denies: Abnormal gait, Confusion, Headache, Numbness, Paresthesias, Seizure, Tingling, Tremors, Vertigo, Weakness Psychiatric: Reports: As per HPI. Denies: Anxiety, Auditory hallucinations, Depression, Homicidal thoughts, Suicidal thoughts, Visual hallucinations Hematological/Lymphatic: Reports: As per HPI. Denies: Anemia, Blood Clots, Easy bleeding, Easy bruising, Swollen glands <Martha Bazzi - Last Filed: 03/25/19 06:51> Past Medical History - SOCIAL HISTORY Smoking Status: Never smoker Alcohol Use: None Drug Use: None - RESPIRATORY Hx Respiratory Disorders: Yes Hx Asthma: Yes Hx Sleep Apnea: Yes Hx of CPAP: Yes Comment:: environmental allergies - CARDIOVASCULAR Hx Cardio Disorders: No - NEURO Hx Neuro Disorders: Yes Hx Headaches: Yes Comment:: tinnitis - GI Hx GI Disorders: Yes Hx Reflux: Yes Hx Irritable Bowel: Yes - Hx Genitourinary Disorders: No - ENDOCRINE Hx Endocrine Disorders: No - MUSCULOSKELETAL Hx Musculoskeletal Disorders: Yes Hx Arthritis: Yes Comment:: bone spurs in feet - PSYCH Hx Psych Problems: Yes Hx Depression: Yes Comment:: PTSD - HEMATOLOGY/ONCOLOGY Hx Hematology/Oncology Disorders: No <Martha Bazzi - Last Filed: 03/25/19 06:51> Family Medical History Any Significant Family History?: Yes Hx Cancer: Father, Grandparents Hx Seizures: Mother <Martha Bazzi - Last Filed: 03/25/19 06:51> Physical Exam - General General Appearance: Alert, Oriented x3, Cooperative, Moderate distress - Head Head exam: Normal inspection - Eye Eye exam: Normal appearance, PERRL, EOMI Pupils: Normal accommodation - ENT ENT exam: Normal exam, Mucous membranes moist, Normal external ear exam, Normal orophraynx Ear exam: Normal external inspection. negative: External canal tenderness Nasal Exam: Normal inspection. negative: Discharge, Sinus tenderness Mouth exam: Normal external inspection, Tongue normal Teeth exam: Normal inspection. negative: Dental caries Throat exam: Normal inspection. negative: Tonsillar erythema, Tonsillar exudate - Neck Neck exam: Normal inspection, Full ROM. negative: Tenderness - Respiratory Respiratory exam: Accessory muscle use, Decreased breath sounds, Respiratory distress, Wheezes - Cardiovascular Cardiovascular Exam: Regular rate, Normal rhythm, Normal heart sounds - GI/Abdominal GI/Abdominal exam: Soft, Normal bowel sounds. negative: Tenderness - Rectal Rectal exam: Deferred - exam: Deferred - Extremities Extremities exam: Normal inspection, Full ROM, Normal capillary refill. n egative: Tenderness - Back Back exam: Reports: Normal inspection, Full ROM. Denies: Muscle spasm, Rash noted, Tenderness - Neurological Neurological exam: Alert, CN II-XII intact, Normal gait, Oriented X3 - Psychiatric Psychiatric exam: Normal affect, Normal mood - Skin Skin exam: Dry, Intact, Normal color, Warm <Martha Bazzi - Last Filed: 03/25/19 06:51> Course Vital Signs 03/25/19 03/25/19 05:46 06:03 Pulse Rate 98 H 105 H Respiratory 22 28 H Rate Blood Pressure 148/98 Pulse Ox 87 L 88 L <Martha Bazzi - Last Filed: 03/25/19 06:51> Vital Signs 03/25/19 03/25/19 05:46 06:03 Pulse Rate 98 H 105 H Respiratory 22 28 H Rate Blood Pressure 148/98 Pulse Ox 87 L 88 L - Reevaluation(s) Reevaluation #1: 03/25/19 07:28 The patient was seen at bedside at shift turn over. He is waiting for admission at this time The patient has a history of asthma with acute exacerbations He was examined. He states his breathing is steadily improving on continuous treatment Floor orders placed at this time. Will continue to monitor while in the ED until admission. <YUMIKO NEWELL - Last Filed: 03/25/19 10:16> Medical Decision Making - Lab Data Result diagrams: 03/25/19 07:15 03/25/19 07:15 <YUMIKO NEWELL - Last Filed: 03/25/19 10:16> Disposition <Martha Bazzi - Last Filed: 03/25/19 06:51> <YUMIKO NEWELL - Last Filed: 03/25/19 10:16> Disposition: Still a Patient at [facility] Quality - Blood Pressure Screening Does Patient Have Any of the Following: No Blood Pressure Classification: Hypertensive Reading Systolic Measurement: 148 Diastolic Measurement: 98 <Martha Bazzi - Last Filed: 03/25/19 06:51> - Quality Measures Quality Measures: N/A - Blood Pressure Screening Does Patient Have Any of the Following: No Blood Pressure Classification: Hypertensive Reading Systolic Measurement: 148 Diastolic Measurement: 98 Screening for High Blood Pressure: < Pre-Hypertensive BP, F/U Documented > [G8950] Pre-Hypertensive Follow-up Interventions: Referral to alternative/primary care provider. <YUMIKO NEWELL - Last Filed: 03/25/19 10:16>
[2019-03-25] MEDS ORDERED: ALBUTEROL SULFATE 0.5% 5 MG/ML BTL 20ML INH SCH (07:00)
[2019-03-25 07:28] LABS: ABSOLUTE NEUTROPHIL COUNT 4.98; GRAN % 76.7 % (47-80); HEMATOCRIT 42.9 % (42.0-52.0); HEMOGLOBIN 15.4 gm/dl (14.0-18.0); LYMPH % 17.6 % (16-45); MEAN CORPUSCULAR HEMOGLOBIN 30.9 pg (27-33); MEAN CORPUSCULAR HGB CONC 35.9 g/dl (32-36); MEAN PLATELET VOLUME 11.4 fl (7.4-10.4); MONO % 5.7 % (0-9); PLATELET COUNT 165 K/uL (130-400); RED BLOOD COUNT 4.99 M/uL (4.40-5.70); RED CELL DISTRIBUTION WIDTH 12.5 % (11.5-14.5); WHITE BLOOD COUNT W/O DIFF 6.5 K/uL (4.2-12.2)
[2019-03-25] MEDS ORDERED: ALBUTEROL SULFATE (0.083%) 2.5 MG/3 ML NEB INH PRN (09:37)
[2019-03-25] MEDS ORDERED: 0.9 % SODIUM CHLORIDE 1000ML 1,000 ML IV ONE (09:37)
[2019-03-25] MEDS ORDERED: METHOTREXATE MC SCH (09:37)
[2019-03-25 10:10] LABS: ALB/GLOB RATIO 1.7 (1.1-1.8); ALBUMIN 4.1 g/dL (4.0-5.0); ALKALINE PHOSPHATASE 129 U/L (40-129); ALT/SGPT 64 U/L (<41); AST/SGOT 43 U/L (10.0-50.0); BLOOD UREA NITROGEN 14 mg/dL (6-20); CREATININE 0.8 mg/dL (0.7-1.2); EST GLOMERULAR FILTRATION RATE > 60 mL/min; GLUCOSE,RANDOM 213 mg/dL (74-109); TOTAL PROTEIN 6.5 g/dL (6.6-8.7)
[2019-03-25] MEDS: IPRATROPIUM/ALBUTEROL (0.5MG/3MG) NEB INH SCH ×4 (10:10→21:39)
[2019-03-25] MEDS: BREO (FLUTICASONE/VILANTEROL) 200MCG/25MCG INHALER INH SCH (10:10)
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
[2019-03-25] MEDS: METHYLPREDNISOLONE PF 125MG/VIAL IVP SCH ×2 (10:22→17:19)
[2019-03-25] MEDS: METOPROLOL SUCC 25 MG TAB.ER PO SCH (10:24)
[2019-03-25] MEDS: HYDROXYCHLOROQUINE SULFATE 200 MG TABLET PO SCH (10:24)
[2019-03-25] MEDS: DIVALPROEX SODIUM 500 MG TABLET ER PO SCH (10:24)
[2019-03-25] MEDS: FAMOTIDINE 20MG TABLET PO SCH (10:24)
[2019-03-25] MEDS: LISINOPRIL 5 MG TABLET PO SCH (10:25)
[2019-03-25] MEDS ORDERED: POTASSIUM CHLORIDE 20 MEQ TABLET PO ONE (10:43)
[2019-03-25] MEDS ORDERED: TRAZODONE 50 MG TABLET PO SCH (22:00)
[2019-03-25] MEDS ORDERED: MIRTAZAPINE 15 MG TABLET PO SCH (22:00)
[2019-03-26] MEDS: METHYLPREDNISOLONE PF 125MG/VIAL IVP SCH ×2 (01:52→09:39)
[2019-03-26 07:00] LABS: ABSOLUTE NEUTROPHIL COUNT 18.51; HEMATOCRIT 42.8 % (42.0-52.0); HEMOGLOBIN 14.8 gm/dl (14.0-18.0); MEAN CELL VOLUME 89.2 fl (81-97); MEAN CORPUSCULAR HEMOGLOBIN 30.8 pg (27-33); MEAN CORPUSCULAR HGB CONC 34.6 g/dl (32-36); MEAN PLATELET VOLUME 11.7 fl (7.4-10.4); PLATELET COUNT 183 K/uL (130-400); RED CELL DISTRIBUTION WIDTH 13.2 % (11.5-14.5); WHITE BLOOD COUNT W/O DIFF 19.7 K/uL (4.2-12.2)
[2019-03-26 07:12] LABS: BLOOD UREA NITROGEN 13 mg/dL (6-20); CREATININE 0.9 mg/dL (0.7-1.2); EST GLOMERULAR FILTRATION RATE > 60 mL/min; GLUCOSE,RANDOM 158 mg/dL (74-109)
--- NOTE | 2019-03-26 07:13 | RADIOLOGY REPORT ---
EXAM: CHEST HISTORY: SHORTNESS OF BREATH. TECHNIQUE: A single view of the chest was obtained. Comparison: 09/07/15. FINDINGS: The heart is not enlarged and there is no mediastinal mass. No acute infiltrate or vascular congestion identified. IMPRESSION: NO ACUTE CARDIAC OR PULMONARY ABNORMALITY. JOB NUMBER: [id number] MTDD
[2019-03-26 07:29] LABS: PLATELET ESTIMATE NORMAL (NORMAL)
[2019-03-26] MEDS: IPRATROPIUM/ALBUTEROL (0.5MG/3MG) NEB INH SCH ×2 (08:51→10:13)
--- NOTE | 2019-03-26 09:14 | Discharge Summary ---
Providers Discharge Summary Date: 03/26/19 Date of admission: 03/25/19 08:28 Expected Date of Discharge: 03/26/19 Attending physician: RENAE PEREZ Physical Exam - Vital Signs Vital Signs: Vital Signs - Last 24 Hrs Temp Pulse Pulse Resp BP Pulse Ox 03/26/19 07:35 97.9 F 60 20 110/54 96 03/25/19 21:40 74 18 94 L 03/25/19 21:28 98.8 F 75 18 115/67 99 03/25/19 21:00 16 03/25/19 18:09 91 H 18 99 03/25/19 17:37 98.0 F 80 20 122/65 95 03/25/19 13:50 89 18 99 03/25/19 13:32 91 H 18 03/25/19 10:10 96 H 18 99 03/25/19 09:14 98.0 F 91 H 20 149/79 100 - General General Appearance: Alert, Oriented x3, Cooperative, No acute distress Limitations: No limitations - Head Head exam: Normal inspection - Eye Eye exam: Normal appearance, PERRL, EOMI Pupils: Normal accommodation - ENT ENT exam: Normal exam, Mucous membranes moist, Normal external ear exam, Normal orophraynx Ear exam: Normal external inspection. negative: External canal tenderness Nasal Exam: Normal inspection. negative: Discharge, Sinus tenderness Mouth exam: Normal external inspection, Tongue normal Teeth exam: Normal inspection. negative: Dental caries Throat exam: Normal inspection. negative: Tonsillar erythema, Tonsillar exudate - Neck Neck exam: Normal inspection, Full ROM. negative: Tenderness - Respiratory Respiratory exam: Wheezes. negative: Accessory muscle use, Respiratory distress, Rhonchi, Stridor - Cardiovascular Cardiovascular Exam: Regular rate, Normal rhythm, Normal heart sounds Peripheral Pulses: 3+: Radial (R), Radial (L), Dorsalis Pedis (R), Dorsalis Pedis (L) - GI/Abdominal GI/Abdominal exam: Soft, Normal bowel sounds. negative: Tenderness - Rectal Rectal exam: Deferred - exam: Deferred - Extremities Extremities exam: Normal inspection, Full ROM, Normal capillary refill. negative: Tenderness - Back Back exam: Reports: Normal inspection, Full ROM. Denies: Muscle spasm, Rash noted, Tenderness - Neurological Neurological exam: Alert, CN II-XII intact, Normal gait, Oriented X3 - Psychiatric Psychiatric exam: Normal affect, Normal mood - Skin Skin exam: Dry, Intact, Normal color, Warm Hospitalization - Hospitalization Admission Diagnosis: Acute asthma exacerbation - Problem List/Discharge Diagnosis (1) Acute severe asthma Current Visit: Yes Status: Acute Base Code: J45.901 - UNSPECIFIED ASTHMA WITH (ACUTE) EXACERBATION Comment: 03/25/19 -pt had severe asthma attack this AM, gave himself 6 alb tx and 1 injection of epi from pen, no resolve and was brought in to [facility] ER -Pt in mild distress but still mod wheezing noted, continue alb tx, steroids IVP, supplementary O2 to maintain sat >92% -continue home meds -pt reports if he starts coughing, asthma attack is emminents. Spoke with Goldy ECHEVARRIA, she is aware to give cont neb at that time 03/26/19 -pt did not req supplemental O2 or epi in 24 hrs -Sats 94-99% RA (pt reports this is baseline) -wheezing has decreased, pt has more air moving all lung mcgowan and no stridor noted -decreased work of breathing this AM -D/C to f/u with PCP in 1 week, seeing U janet Yeh 04/19/19 (asthma specialist) and has an appt with the pulm surgeon 04/2019 (2) Hypokalemia Current Visit: Yes Status: Acute Base Code: E87.6 - HYPOKALEMIA Comment: 03/25/19 -K 3.1 (probably result of large amt of alb taken this AM) -supplemented, repeat K this evening and BMP am (3) Elevated blood sugar Current Visit: Yes Status: Acute Base Code: R73.9 - HYPERGLYCEMIA, UNSPECIFIED Comment: 03/25/19 -glucose 213 this AM, pt takes prednisone 20mg daily for asthma -a1c pending r/t chronic steroid use (4) Full code status Current Visit: Yes Status: Acute Base Code: Z78.9 - OTHER SPECIFIED HEALTH STATUS Comment: 03/25/19 -full code status (5) DVT prophylaxis Current Visit: Yes Status: Acute Base Code: Z29.9 - ENCOUNTER FOR PROPHYLACTIC MEASURES, UNSPECIFIED Comment: 03/25/19 -pt is young, moving around in room, no h/o clots, low risk -SCD when in bed - Hospitalization Course Procedures: Imaging and X-Rays 03/25/19 06:13 CHEST 1 VIEW [RAD] Stat Abnormal Labs: Abnormal Lab Results 03/25/19 03/25/19 03/26/19 Range/Units 07:15 07:15 06:40 WBC 19.7 H (4.2-12.2) K/uL MPV 11.4 H 11.7 H (7.4-10.4) fl Neutrophils % 87.0 H (47-80) % Lymphocytes 9.0 L (16-45) % Potassium 3.1 L (3.4-4.5) mmol/L Chloride (98-107) mmol/L Random Glucose 213 H (74-109) mg/dL ALT 64 H (<41) U/L Total Protein 6.5 L (6.6-8.7) g/dL 03/26/19 Range/Units 06:40 WBC (4.2-12.2) K/uL MPV (7.4-10.4) fl Neutrophils % (47-80) % Lymphocytes (16-45) % Potassium 4.6 H (3.4-4.5) mmol/L Chloride 108 H (98-107) mmol/L Random Glucose 158 H (74-109) mg/dL ALT (<41) U/L Total Protein (6.6-8.7) g/dL Discharge Medications - Discharge Medications Home Medications: Ambulatory Orders Albuterol Sulfate 0.083% [Neb] [Albuterol Sulfate] 3 ml NEB .EVERY 4-6 HOURS PRN 07/04/15 [Last Taken 07/04/15 14:00] Albuterol Sulfate [Ventolin Hfa] 2 puff INH ASDIR 07/04/15 [Last Taken 07/04/15] Budesonide/Formoterol Fumarate [Symbicort 160-4.5 Mcg Inhaler] 1 puff INH DAILY 07/04/15 [Last Taken 07/04/15] Epinephrine [Epipen] 0.3 mg IM ASDIR PRN #3 syr 07/04/15 [Last Taken 12/29/17 03:55] Tiotropium Morganza [Spiriva] 1 cap IH DAILY 07/04/15 [Last Taken 07/04/15] Ranitidine HCl [Zantac] 150 mg PO DAILY 08/18/16 [Last Taken Unknown] Adalimumab [Humira Pen] 40 mg SQ ASDIR 12/17/17 [Last Taken Unknown] Aspirin [Aspirin EC] 650 mg PO DAILY 12/17/17 [Last Taken Unknown] Carboxymethylcellulose [Methocel E 4 M] 1 gm MC ASDIR 12/17/17 [Last Taken Unknown] Cetirizine HCl [Zyrtec] 10 mg PO DAILY 12/17/17 [Last Taken Unknown] Divalproex Sodium [Depakote] 500 mg PO DAILY 12/17/17 [Last Taken Unknown] Hydroxychloroquine Sulfate [Plaquenil] 200 mg PO DAILY 12/17/17 [Last Taken Unknown] Hydroxyzine HCl [Atarax] 25 mg PO Q8H PRN 12/17/17 [Last Taken Unknown] Lisinopril [Prinivil] 5 mg PO DAILY 12/17/17 [Last Taken Unknown] Methotrexate 1 gm MC ASDIR 12/17/17 [Last Taken Unknown] Metoprolol Succinate [Toprol Xl] 100 mg PO DAILY 12/17/17 [Last Taken Unknown] Mirtazapine [Remeron] 30 mg PO QHS 12/17/17 [Last Taken Unknown] Trazodone HCl 100 mg PO QHS 12/17/17 [Last Taken Unknown] Prednisone [Prednisone 20Mg] 20 mg PO DAILY #5 tab 12/05/18 [Last Taken Unknown] Albuterol Sulfate 0.083% [Neb] [Albuterol Sulfate] 2.5 mg INH RESP.Q2H PRN nebulization solution 03/26/19 [Last Taken Unknown] Albuterol Sulfate 0.5% [Cont] 10 mg INH CONT nebulization solution 03/26/19 [Last Taken Unknown] Ipratropium/Albuterol [Duoneb] 3 ml INH RESP.Q4H.WA ampul.neb 03/26/19 [Last Taken Unknown] Discharge Plan - Discharge Instructions Activity at Discharge: Increase Activity as Tolerated Diet at Discharge: Regular Diet Additional Instructions: You need to see your PCP in 1 week, keep your Dr Yeh appt 04/19/19 and good luck with your surgical consult for the thermaplasty treatment. Continue your current medications, using alb as needed. Please return to ER for no improvement in symptoms with albuterol or if you have to use your epi pen again. Quality Measures - Quality Measures Quality Measures: Documentation of Current Medications in Medical Record, Screening for High Blood Pressure and F/U Documented - Current Medications Quality Measure: Measure #130: Documentation of Current Medications Documentation of Current Medications: <Current Medications Documented/Reviewed> [G8427] - Blood Pressure Screening Quality Measure: Screening for High Blood Pressure and Follow-Up Documented Does Patient Have Any of the Following: Active Dx of HTN Blood Pressure Classification: Hypertensive Reading Systolic Measurement: 148 Diastolic Measurement: 98 Screening for High Blood Pressure: Patient Exclusion, Hx of HTN [G9744] - Elder Abuse Suspicion Index EASI Reference Information: Alfreda ZUNIGA, Paulino C, Chuy D, Karolyn Renner.Development and validation of a tool to assist physicians identification of elder abuse: The Elder Abuse Suspicion Index (EASI ). Journal of Elder Abuse and Neglect, 2008; 20 (3): 276-300.
[2019-03-26] MEDS: METOPROLOL SUCC 25 MG TAB.ER PO SCH (09:37)
[2019-03-26] MEDS: FAMOTIDINE 20MG TABLET PO SCH (09:38)
[2019-03-26] MEDS: LISINOPRIL 5 MG TABLET PO SCH (09:39)
[2019-03-26] MEDS: DIVALPROEX SODIUM 500 MG TABLET ER PO SCH (09:39)
[2019-03-26] MEDS: HYDROXYCHLOROQUINE SULFATE 200 MG TABLET PO SCH (09:39)
[2019-03-26] MEDS: BREO (FLUTICASONE/VILANTEROL) 200MCG/25MCG INHALER INH SCH (10:14)
== END 2019-03-26 12:50 | disposition home or self-care (01) ==
LOC: ER 05:40 → MEDSURG 08:28
PROVIDERS: ADMIT Internal Medicine; ATTEND Internal Medicine
DX: J45.901 Unspecified asthma with (acute) exacerbation (principal); E87.6 Hypokalemia; R73.9 Hyperglycemia, unspecified; R06.02 Shortness of breath; H93.19 Tinnitus, unspecified ear; K21.9 Gastro-esophageal reflux disease without esophagitis; K58.9 Irritable bowel syndrome, unspecified; M19.90 Unspecified osteoarthritis, unspecified site; F17.220 Nicotine dependence, chewing tobacco, uncomplicated
CPT/HCPCS: 71045; 80048; 80053; 83036; 84132; 85025; 85027; 94640; 94644; 94760; 96365; 96366; 96374; 99220; 99285; J2930